=== PATIENT | male | born 1970 | race Caucasian/White ===

== ENCOUNTER 2024-02-17 09:00 | Outpatient (RCR) | payer MEDICARE, MEDICAID, SELFPAY ==
[2024-02-17 10:03] VITALS: BMI 26.8
--- NOTE | 2024-02-17 11:39 | PC.NURSE ---
Addendum entered by Sharon Celis RN 02/17/24 11:56: VS BP 122/72 P 68. Original Note: Deandre appeared to be struggling in the [facility] group setting. He left the first group and was sitting out in the kitchen stating he was having a panic attack and could not tolerate being in the group. Stated there were too many people in the group and he felt they were all talking at once. He stated he wanted to go home thus he called his [facility] staff worker Gustavo to come pick him up. He was tearful at one point as he was afraid that Gustavo would be upset with him for not attending the program. I spoke to Deandre's [employer] worker Gustavo who was supportive of Deandre and did not appear to be upset with him. Gustavo stated group settings are challenging for Deandre and he does not excel in this type of setting. He has tried day programs in the past and was unable to tolerate that type of setting as he gets too triggered by being around too many people. He does have a therapist and psychiatrist. Deandre was calm and cooperative while waiting for his ride to come pick him up. He was escorted by [facility] staff outside to wait for his ride. He left with [employer] staff without incident.
[2024-02-17 11:56] VITALS: BP 122/72; PULSE 68
== END 2024-02-17 23:59 | disposition home or self-care (01) ==
LOC: HO.PHPA 09:00
PROVIDERS: Visit Provider Psychiatry & Neurology Psychiatry
DX: F25.0 Schizoaffective disorder, bipolar type (principal); F41.9 Anxiety disorder, unspecified
CPT/HCPCS: 90791; 90853